=== PATIENT | male | born 1970 | race African-American/Black ===

== ENCOUNTER 2016-06-06 18:09 | Emergency (ER) | payer SELFPAY ==
[~2016-06-06] VITALS: Ht 182.9 cm; Wt 86.4 kg
[~2016-06-06 18:09] MED LIST: PALI234D IM; RISP2 PO
[2016-06-06 19:54] LABS: BASOPHILS % (AUTO) 0.4 % (0.0-2.0); EOSINOPHILS % (AUTO) 0.3 % (1.0-6.0); HEMATOCRIT 39.3 % (41-53); LYMPHOCYTES # (AUTO) 0.8 K/uL (1.0-4.8); LYMPHOCYTES % (AUTO) 14.3 % (22.0-44.0); MEAN CORPUSCULAR HEMOGLOBIN 30.6 pg (26.0-34.0); MEAN CORPUSCULAR VOLUME 93 fL (80-100); MONOCYTES # (AUTO) 0.5 K/uL (0.1-1.0); MONOCYTES % (AUTO) 7.8 % (2.0-9.0); NEUTROPHILS # (AUTO) 4.5 K/uL (1.8-7.7); NEUTROPHILS % (AUTO) 77.2 % (40.0-70.0); PLATELET COUNT (AUTO) 197 K/uL (150-450); RED BLOOD CELL COUNT(AUTO) 4.24 MIL/uL (4.50-5.90); WHITE BLOOD COUNT (AUTO) 5.8 K/uL (4.5-11.0)
[2016-06-06 20:03] LABS: ANION GAP 9 mmol/L (8-16); CALCIUM, TOTAL 8.6 mg/dL (8.8-10.5); CARBON DIOXIDE 27 mmol/L (22-29); CHLORIDE 107 mmol/L (98-107); GLOMERULAR FILTR. RATE CALC > 60 mL/min (>60); POTASSIUM 3.6 mmol/L (3.5-5.1); SODIUM SERUM 143 mmol/L (136-145); UREA NITROGEN, BLOOD 9 mg/dL (7-18)
[2016-06-06 20:10] LABS: ALANINE AMINOTRANSFERASE 44 U/L (12-78); ALBUMIN 3.6 g/dL (3.4-5.0); ASPARTATE AMINOTRANSFERASE 28 U/L (15-37); BILIRUBIN,TOTAL 0.3 mg/dL (0.1-1.0); TOTAL PROTEIN, SERUM 6.8 g/dL (6.4-8.2)
[2016-06-07 00:18] VITALS: BP 122/81
== END 2016-06-07 01:15 | disposition home or self-care (01) ==
LOC: EDBD 18:14 → MERGE 18:14 → EMS 18:14
DX: F25.9 Schizoaffective disorder, unspecified (principal)
CPT/HCPCS: 36415; 80053; 80307; 85025; 99285; G0480

== ENCOUNTER 2016-06-07 08:43 | Inpatient (IN) | payer SELFPAY ==
[~2016-06-07] VITALS: Ht 182.9 cm; Wt 74.6 kg
[2016-06-07] MEDS ORDERED: HALOPERIDOL LACTATE 5 MG/ML VIAL IM ONE (09:15)
[2016-06-07 09:23] LABS: BASOPHILS % (AUTO) 0.7 % (0.0-2.0); EOSINOPHILS % (AUTO) 0.5 % (1.0-6.0); HEMATOCRIT 42.3 % (41-53); HEMOGLOBIN 14.1 g/dL (13.5-17.5); LYMPHOCYTES # (AUTO) 1.2 K/uL (1.0-4.8); LYMPHOCYTES % (AUTO) 23.8 % (22.0-44.0); MEAN CORPUSCULAR HEMOGLOBIN 30.6 pg (26.0-34.0); MEAN CORPUSCULAR HGB CONC 33.2 G/dL (31.0-37.0); MEAN CORPUSCULAR VOLUME 92 fL (80-100); MONOCYTES # (AUTO) 0.3 K/uL (0.1-1.0); MONOCYTES % (AUTO) 6.3 % (2.0-9.0); NEUTROPHILS # (AUTO) 3.4 K/uL (1.8-7.7); NEUTROPHILS % (AUTO) 68.7 % (40.0-70.0); PLATELET COUNT (AUTO) 224 K/uL (150-450); RED CELL DISTRIBUTION WIDTH 16.2 % (11.5-14.5)
[2016-06-07 09:40] LABS: ANION GAP 12 mmol/L (8-16); CALCIUM, TOTAL 9.1 mg/dL (8.8-10.5); CARBON DIOXIDE 25 mmol/L (22-29); CHLORIDE 106 mmol/L (98-107); CREATININE 1.15 mg/dL (0.60-1.30); GLOMERULAR FILTR. RATE CALC > 60 mL/min (>60); POTASSIUM 3.3 mmol/L (3.5-5.1); SODIUM SERUM 143 mmol/L (136-145); UREA NITROGEN, BLOOD 8 mg/dL (7-18)
[2016-06-07 09:45] LABS: ALANINE AMINOTRANSFERASE 49 U/L (12-78); ALBUMIN 3.8 g/dL (3.4-5.0); ASPARTATE AMINOTRANSFERASE 30 U/L (15-37); BILIRUBIN,TOTAL 0.4 mg/dL (0.1-1.0); TOTAL PROTEIN, SERUM 7.3 g/dL (6.4-8.2)
[2016-06-07] MEDS ORDERED: ZOLPIDEM TARTRATE 10 MG TABLET PO PRN (10:45)
[2016-06-07] MEDS ORDERED: HALOPERIDOL 5 MG TABLET PO PRN (10:45)
[2016-06-07] MEDS ORDERED: LORazepam 2 MG TABLET PO PRN (10:45)
[2016-06-07] MEDS ORDERED: POTASSIUM CHLORIDE 20 MEQ ER TABLET PO ONE (12:00)
[2016-06-07 16:00] VITALS: BP 145/79
[2016-06-07] MEDS ORDERED: RisperiDONE 2 MG TABLET PO SCH (21:00)
[2016-06-08] MEDS ORDERED: PNEUMOCOCCAL VACCINE POLYVALENT 0.5 ML VIAL [PPSV23] IM ONE (05:00)
[2016-06-08] MEDS ORDERED: INFLUENZA VIRUS VACCINE QVS 2016-17 (3YR+)/PF 60 MCG/0.5 ML SYRINGE IM ONE (05:00)
[2016-06-08 08:00] VITALS: BP 152/108
[2016-06-08 08:56] LABS: ALANINE AMINOTRANSFERASE 50 U/L (12-78); ALBUMIN 3.9 g/dL (3.4-5.0); ANION GAP 7 mmol/L (8-16); ASPARTATE AMINOTRANSFERASE 28 U/L (15-37); BILIRUBIN,TOTAL 0.8 mg/dL (0.1-1.0); CALCIUM, TOTAL 9.4 mg/dL (8.8-10.5); CARBON DIOXIDE 30 mmol/L (22-29); CHLORIDE 102 mmol/L (98-107); CREATININE 1.18 mg/dL (0.60-1.30); GLOMERULAR FILTR. RATE CALC > 60 mL/min (>60); POTASSIUM 4.5 mmol/L (3.5-5.1); SODIUM SERUM 139 mmol/L (136-145); UREA NITROGEN, BLOOD 11 mg/dL (7-18)
[2016-06-08] MEDS: HALOPERIDOL 5 MG TABLET PO SCH ×2 (10:54→21:38)
[2016-06-08] MEDS: BENZTROPINE MESYLATE 0.5 MG TABLET PO SCH ×2 (10:54→21:38)
[2016-06-08 16:56] VITALS: BP 140/84
[2016-06-09] MEDS: BENZTROPINE MESYLATE 0.5 MG TABLET PO SCH ×2 (09:41→20:41)
[2016-06-09] MEDS: HALOPERIDOL 5 MG TABLET PO SCH ×2 (09:41→20:41)
[2016-06-09] MEDS: AmLODIPine BESYLATE 10 MG TABLET PO SCH (09:41)
[2016-06-09 10:19] VITALS: BP 144/91
[2016-06-09 16:00] VITALS: BP 142/87
[2016-06-10 05:45] VITALS: BP 145/95
[2016-06-10] MEDS ORDERED: HALO5 PO (08:27)
[2016-06-10] MEDS ORDERED: AMLO-512 PO (08:27)
[2016-06-10] MEDS ORDERED: BENZ0.5T6 PO (08:27)
[2016-06-10] MEDS: BENZTROPINE MESYLATE 0.5 MG TABLET PO SCH (09:17)
[2016-06-10] MEDS: AmLODIPine BESYLATE 10 MG TABLET PO SCH (09:17)
[2016-06-10] MEDS: HALOPERIDOL 5 MG TABLET PO SCH (09:17)
== END 2016-06-10 10:00 | disposition home or self-care (01) | DRG 885 ==
LOC: EEVIPCON 08:44 → EMS 08:44 → 3EC 10:57 → EMS 11:09 → 3EC 06-08 18:55 → 3EI 06-09 12:45
PROVIDERS: ADMIT Psychiatry & Neurology Psychiatry; ATTEND Psychiatry & Neurology Psychiatry
DX: F29 Unspecified psychosis not due to a substance or known physiological condition (principal); F20.0 Paranoid schizophrenia; I10 Essential (primary) hypertension; F12.90 Cannabis use, unspecified, uncomplicated; Z72.89 Other problems related to lifestyle; Z79.899 Other long term (current) drug therapy; Z28.21 Immunization not carried out because of patient refusal
CPT/HCPCS: 96372; 99291; G0480; J1630